=== PATIENT | female | born 2000 | race Caucasian/White ===

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

== ENCOUNTER 2018-08-03 06:26 | Day surgery (SDC) | payer OTHER ==
[2018-08-03 07:10] VITALS: BP 107/64; TEMP 98.6; BMI 27.9
[2018-08-03 08:39] LABS: Bilirubin Negative (Negative); Blood, Urine Negative (Negative); Clarity CLEAR (Clear); Glucose, Urine (Dipstick) Negative (Negative); Leukocyte Large (Negative); Nitrite Positive (Negative); Protein, Urine (Dipstick) Negative (Neg-Trace); Specific Gravity, Urine 1.006 (1.002-1.036); Urobilinogen 0.2 mg/dL (0.2-1.0); pH, Urine 7.5 (5.0-9.0)
[2018-08-03 08:40] LABS: Bacteria/HPF None Seen HPF (None Seen); Hyaline Casts/LPF 0-3 HYALINE CAST LPF (0-3 Hyaline); Pathc Cast-AUWi Flag 0.54 (0-2.49); RBC/HPF 0-3 HPF (0-3); Squamous Epithelial None Seen HPF (0-3); WBC/HPF 21-50 HPF (0-3)
--- NOTE | 2018-08-03 08:40 | PRG ---
DATE OF SERVICE: 08/03/2018 PRIMARY BILLING ASSISTANT: Dr. Jacob. CHIEF COMPLAINT: Back pain and pressure. HISTORY OF PRESENT ILLNESS: The patient is a 18-year-old G1, P0 female with an intrauterine at 35 weeks and 2 days, who is followed by Dr. Jacob, who presents for onset of early this morning of intermittent low back pain that lasts about 30 seconds at a time. The patient is unable to describe how often it comes, but says every few minutes. The patient reports prior to this onset of pain and pressure that she was feeling sick and under the weather. She denies vaginal bleeding or leakage of fluid. She denies fever, fall, headache, chest pain, or shortness of breath. The patient reports nausea with the pain. Denies vomiting , diarrhea, or constipation. Denies new rash, hip problems, knee problems, or muscle weakness. The pain is in her lower back bilaterally and again is described as pressure and intermittent. The patient also reports that she has been having urinary urgency where she feels like she has to go the bathroom every few minutes, which is new for her. PAST MEDICAL HISTORY: Negative. PAST SURGICAL HISTORY: She has had foot surgery with bone graft. ALLERGIES: TRAMADOL. MEDICATIONS: vitamins. OB LABS: Unavailable at time of dictation. REVIEW OF SYSTEMS: Per HPI. OB HISTORY: This is the first . SOCIAL HISTORY: Denies drug, alcohol, or tobacco use. PHYSICAL EXAMINATION: VITAL SIGNS: Blood pressure 107/64, heart rate of 86, respiratory rate of 18, and temperature 98.1. GENERAL: She appears to be in no acute distress. She is alert, oriented, cooperative, and pleasant to interact with. HEAD: Normocephalic, atraumatic. LUNGS: Clear to auscultation bilaterally. HEART: Has regular rate and rhythm. ABDOMEN: Gravid and soft. EXTREMITIES: Nontender, nonedematous. : Has a cervical exam of 1, 40, -2 station. heart tracing performed for back pain in . Fetus is noted to have a baseline in the 120s with moderate long-term variability, positive 15 x 15 accelerations, no decelerations. She has a lot of irritability seen on the monitor, but no consistent contraction pattern. Urinalysis is pending. ASSESSMENT AND PLAN: The patient is a 18-year-old G1, P0 female with an intrauterine at 35 weeks and 2 days, is having intermittent back pain which is likely contraction pain that she is experiencing. This may or may not be associated with a urinary urgency that she has been feeling. We do have a urinalysis ordered and results are pending. She has no evidence of labor at this time with a closed cervix. Fetus is reactive with a category 1 tracing. The patient has a followup appointment with Dr. Jacob on the 07 of August, which we have encouraged that she keep. The patient will be discharged to home. addendum- dx w/uti and jamie carrillo Job ID: [id number] [facility]
--- NOTE | 2018-08-03 08:55 | PDOC.EVN ---
Event Note - Event Note Event Note: Lab check: OnCall OB: Urine with nitrite pos. LE poos but no bacteria on micro... requested to send UC&S for confirmation We will treat emperically with macrobid 100BID x 5 days for now follow up UC&S for now
== END 2018-08-03 09:30 | disposition home or self-care (01) ==
LOC: L&D/OP 06:26
PROVIDERS: ATTEND Obstetrics & Gynecology
DX: O99.89 Other specified diseases and conditions complicating pregnancy, childbirth and the puerperium (principal); M54.9 Dorsalgia, unspecified; Z3A.35 35 weeks gestation of pregnancy; Z79.899 Other long term (current) drug therapy; Z88.5 Allergy status to narcotic agent
CPT/HCPCS: 81001; 99283

== ENCOUNTER 2018-08-08 18:26 | Day surgery (SDC) | payer OTHER ==
[2018-08-08 19:25] VITALS: BP 111/69; TEMP 98.6; BMI 28.9
[2018-08-08] MEDS ORDERED: Promethazine HCl 25 MG/ML VIAL IM/IV PRN (19:43)
[2018-08-08] MEDS ORDERED: Butorphanol Tartrate 1 MG/ML VIAL IM SCH (19:45)
--- NOTE | 2018-08-08 21:04 | HP ---
TIME OF EVALUATION: 1935 hours. LOCATION: Labor and Delivery triage in bed A. This is a patient Dr. Jacob. CHIEF COMPLAINT: The patient is here with complaint of irregular contractions. HISTORY OF PRESENT ILLNESS: This is a 18-year-old , G1, P0, at 36 weeks and 0 days here with irregular contractions. The patient's due date is September 05, 2018. Patient saw Dr. Matta earlier today and was checked in the office and her cervical exam was 1 cm dilated, 50% effaced, -2 station. She is here with same irregular contractions, but no leakage of fluid. No vaginal bleeding and good movement. There are no fevers. REVIEW OF SYSTEMS: Complete review of systems was checked and is otherwise negative unless specified in the HPI. PAST MEDICAL HISTORY: Negative. SURGICAL HISTORY: She had right foot surgery in the past. ALLERGIES: NONE, BUT SHE STATES THAT "TRAMADOL MAKES HER SICK." PHYSICAL EXAMINATION: VITAL SIGNS: Blood pressures are normal with a blood pressure of 111/60s to 70s and she is afebrile. GENERAL: Clinically, she is in no acute distress. : Uterus is soft and nontender. On cervical assessment, her cervix in Labor and Delivery is 1, 15, and -2, with no vaginal bleeding. Monitored heart tones are in the 140s and are category 1/reactive. Contractions are low amplitude and are present at about every 5 to 8 minutes. ASSESSMENT: This is a 18-year-old, G1, P0, at 36 weeks and 0 days, patient of Dr. Jacob, with no cervical change from earlier in today. Her contractions started at about 1500, but she has not made cervical change from the morning. PLAN: 1. No evidence of true labor at this time. 2. Information given to the family. 3. We will continue to monitor for now. 4. Pain medicine p.r.n. 5. As she is less than 2 cm, and appears in no acute distress, without evidence of cervical change, I will not give her Cel[place] at this time as my suspicion that she will deliver under 37 weeks is very low. Reassurance provided. Job ID: [id number]
== END 2018-08-08 19:55 | disposition home or self-care (01) ==
LOC: L&D/OP 18:26
PROVIDERS: ATTEND Obstetrics & Gynecology
DX: O47.03 False labor before 37 completed weeks of gestation, third trimester (principal); Z3A.36 36 weeks gestation of pregnancy; Z88.5 Allergy status to narcotic agent; Z79.899 Other long term (current) drug therapy
CPT/HCPCS: 99282

== ENCOUNTER 2018-08-24 10:55 | Day surgery (SDC) | payer OTHER ==
[2018-08-24 11:28] VITALS: BP 119/67; TEMP 98.7
[2018-08-24 11:29] VITALS: BMI 28.7
--- NOTE | 2018-08-24 15:58 | PRG ---
DATE OF SERVICE: 08/24/2018 PRIMARY OB: Bette Jacob MD CHIEF COMPLAINT: Abdominal pains. HISTORY OF PRESENT ILLNESS: The patient is a 18-year-old G1, P0 female with an intrauterine at 38 weeks and 2 days, who is presenting to Labor and Delivery with worsening onset of abdominal pain. The patient reports that contractions have gotten more severe, but not so bad that she is desiring pain medication. She does report that the last time she was seen, her cervical exam was about 50% effaced, 1 cm. She denies any falls or fever. She denies headache, chest pain, shortness of breath. She denies vomiting. She has had some nausea. Reports some diarrhea, but no constipation. Denies any new rashes. The patient does report pain in her hips, has been associated with this and some pain in her back. Denies urinary urgency. Denies change in her discharge. The patient does report that she thinks she has seen her mucus plug. 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 PAST SURGICAL HISTORY: She has had resection of this bone tumor with a bone graft with revision. ALLERGIES: TRAMADOL. MEDICATIONS: vitamins. OB LABS: Blood type is O positive. Platelets are 272. Hepatitis B surface antigen is negative. She is rubella immune. GC and chlamydia are negative. Diabetes screen is 68. One-hour Glucola is 68, HIV is nonreactive. Antibody screen is negative. REVIEW OF SYSTEMS: Per HPI. PHYSICAL EXAMINATION: VITAL SIGNS: Blood pressure is 114/68, heart rate is 86, respiratory rate is 16, saturating 98% on room air, and temperature 98.6. GENERAL: She appears to be in no acute distress. She is alert, oriented, cooperative, and pleasant to interact with. HEAD: Normocephalic and atraumatic. LUNGS: Clear to auscultation bilaterally. HEART: Has regular rate and rhythm. ABDOMEN: Gravid and nontender. EXTREMITIES: Nontender and nonedematous. She does have some SI joint tenderness on the right side. CERVICAL: 1.5, 80%, -2 station, and a repeat exam 3 hours later is unchanged. heart tracing performed for abdominal pains in shows category one tracing with baseline in the 120s with moderate long-term variability, positive accelerations. She had a single isolated deceleration lasting 20 seconds with no other decelerations visible on a strip over several hours. Tocometer showing irritable irregular uterine contractions with underlying contractions that may be 5 or 6, 10 minutes apart. ASSESSMENT AND PLAN: The patient is a 18-year-old G1, P0 female with an intrauterine at 38 weeks and 2 days, who is here with latent labor. The patient is being discharged to home. She has been offered pain medication to assist with pain control, which she has declined. The patient has been given term labor precautions and has been counseled to keep her appointment with Dr. Jacob as scheduled. Job ID: [id number]
== END 2018-08-24 14:40 | disposition home or self-care (01) ==
LOC: L&D/OP 10:55
PROVIDERS: ATTEND Obstetrics & Gynecology
DX: O47.1 False labor at or after 37 completed weeks of gestation (principal); Z3A.38 38 weeks gestation of pregnancy; Z88.5 Allergy status to narcotic agent; Z98.890 Other specified postprocedural states

== ENCOUNTER 2018-08-24 17:51 | Inpatient (IN) | payer OTHER ==
[~2018-08-24 17:51] MED LIST: Bupivacaine/Epinephrine 0.25% 30 ML VIAL ONE
[2018-08-24 18:17] VITALS: BMI 28.7
[2018-08-24] MEDS ORDERED: Morphine 4 MG/ML VIAL SLOW IVP SCH (18:30)
--- NOTE | 2018-08-24 19:44 | PDOC.FPROB ---
FMR OB H&P: HPI - History of Present Illness Chief Complaint: Contractions Indentification: 18 year old History of Present Illness: 18 year old at 38.2 wks presents to Labor and Delivery with contractions that are 3 minutes apart. Patient was seen earlier this afternoon for contractions and vaginal bleeding. She was noted to be 1.5/80/-2 and did not make change. She was discharged around 15:00 and returns with contractions that are stronger and closer together. She denies vaginal bleeding, vaginal discharge , dysuria, vomiting, or LoF. Primary Care Physician: Nidia FMR OB H&P: Current - Care : 1 Para: 0 Gestational age: 38.2 wks - OB Labs Blood type: O RH: positive Antibody Screen: negative HIV: negative HepBsAg: negative Rubella: immune Gonorrhea: negative Chlamydia: negative 1 hour gtt: 68 Platelets: 272 FMR OB H&P: History - Past Medical History PMH: Hx of bone tumor on ankle s/p resection with graft - Surgical History Sx History: Resection of bone tumor with bone graft and revision - Social History Social History: Denies alcohol, tobacco, or drug use FMR OB H&P: Medications - Current Home Medications: Medication Instructions Recorded Confirmed Type Pnv No.95/Ferrous Fum/Folic AC 1 each PO DAILY 08/03/18 08/24/18 History [ Caplet] Allergies/Adverse Reactions: Allergies Allergy/AdvReac Type Severity Reaction Status Date / Time tramadol [From Ultram] Allergy Intermediate Nausea Verified 08/03/18 07:11 FMR OB H&P: ROS - Review of Systems General: denies: fever/chills, weight/appetite/sleep changes Eyes: denies: vision changes ENT: denies: nasal congestion, rhinorrhea Cardiovascular: denies: chest pain, palpitation, edema Respiratory: denies: cough, shortness of breath Gastrointestinal: denies: nausea, vomiting Genitourinary (Female): reports: polyuria, contractions. denies: dysuria Neurologic: denies: syncope, weakness Hematologic/Lymphatic: denies: prolonged or excessive bleeding Psychological: denies: depression, anxiety FMR OB H&P: Vital Signs - Maternal Vital signs: BP 91/54 Pulse 86 Afebrile - Heart Tones Baseline: 120 Variability: moderate Acceleration: present Deceleration: absent Category: category 1 Crum contractions every: q4 min FMR OB H&P: Physical Exam - Physical Exam General: NAD, awake, alert and oriented HEENT: MMM, grossly normal vision, grossly normal hearing Heart: RRR, no murmurs/rubs/gallops General: CTAB, no respiratory distress Abdomen: soft, gravid, non-tender Musculoskeletal: pulses present, FROM in all four extremities Neurological: no tremor, no focal deficit Skin: no rash, capillary refill <2 seconds Lymphatic: no unusual bruising or bleeding, no purpura Psychiatric: intact recent and remote memory, good judgement and insight - Pelvic Exam SVE: 100/-2 at 18:20 by nurse Presentation: Cephalic FMR OB H&P: A/P - Problem List (1) Term Current Visit: Yes Status: Acute Code(s): Z34.80 - ENCOUNTER FOR SUPRVSN OF NORMAL , UNSP TRIMESTER Disposition: 18 year old at 38.2 wks presents with contractions 1. TIUP - 38.2 wks - Contractions q3-4 minutes - Category I strip - Cervical check at 18:20 by nurse 100/-2; cervical check around 15:00 was 1.5 80/-2 - Will recheck in 2 hours and notify patient's PCP - Patient given morphine for pain - Bolus 1L LR Dispo: Patient in latent labor. Will recheck in 2 hours to see if she has made any cervical change. Will notify patient's PCP for possible admission. Discussion: Date/Time: 08/24/181939 This H&P was discussed with Dr. Hogan who agrees with the above documentation and plan. Signature: Ariana Antoine DO PGY-2 Addendum - Attending - Attending Attestation Date/Time: 08/26/18 [id number] I personally evaluated the patient and discussed the management with Dr. Antoine I agree with the History, Examination, Assessment and Plan documented above with any addition or exceptions noted below.
[2018-08-24] MEDS ORDERED: Docusate 100 MG CAP PO PRN (21:21)
[2018-08-24] MEDS ORDERED: Butorphanol Tartrate 1 MG/ML VIAL SLOW IVP PRN (21:21)
[2018-08-24] MEDS ORDERED: Acetaminophen 500 MG TAB PO PRN (21:21)
[2018-08-24] MEDS ORDERED: Promethazine HCl 25 MG/ML VIAL IM PRN ×2 (21:21→23:18)
[2018-08-24] MEDS ORDERED: Ondansetron PF 4 MG/2 ML Vial IVP PRN ×2 (21:21→23:18)
[2018-08-24] MEDS ORDERED: Lidocaine 1% (PF) 30 ML VIAL SC PRN (21:23)
[2018-08-24] MEDS ORDERED: NS / Oxytocin 40 units/1000ml 1,000 ML IV PRN (21:23)
[2018-08-24] MEDS ORDERED: Ibuprofen 800 MG TAB PO PRN (21:23)
--- NOTE | 2018-08-24 21:27 | PDOC.EVN ---
Event Note - Event Note Event Note: 08/24/2018 at 9:25 PM Patient rechecked by nurse and noted to be 3/100/-2 with bulging bag. She has made cervical change and appears to be progressing. Patient yani Q3-4 minutes. Will admit to L&D for expectant management. Anticipate patient will labor throughout the night. Will notify patient's primary OB provider. Ariana Antoine, DO PGY-2
[2018-08-24] MEDS ORDERED: Lactated Ringer's 1,000 ML IV SCH (21:30)
--- NOTE | 2018-08-24 21:40 | PDOC.EVN ---
Event Note - Event Note Event Note: Per patient report, GBS negative. Did not find GBS status in records. Ariana Antoine, PGY-2
[2018-08-24 21:42] LABS: Hemoglobin 9.5 g/dL (12.0-16.0); Mean Corpuscular Hemoglobin 26.9 pg (25.0-35.0); Mean Corpuscular Volume 81.6 fL (78.0-98.0); Mean Platelet Volume 8.2 fL (7.4-10.4); Platelet Count 296 thou/uL (130-400); RBC Distribution Width 13.3 % (11.5-14.5); Red Blood Cell (RBC) Count 3.54 mill/uL (4.00-5.20); White Blood Cell (WBC) Count 16.7 thou/uL (4.8-10.8)
[2018-08-24] MEDS ORDERED: Fentanyl 4 mcg/Bup 0.1% Cadd 100 ML ONE (22:16)
[2018-08-24 22:25] LABS: Syphilis Antibody Nonreactive (Nonreactive); Syphilis Antibody Index 0.09 S/CO (<1.00 Non-Reactive)
[2018-08-24 22:55] LABS: HBSAg Index 0.32 S/CO (0-0.99); Hep B Surf Ag Non-Reactive S/CO (NonReactive)
[2018-08-24] MEDS ORDERED: Naloxone HCl 0.4 mg/ml Vial IVP PRN ×2 (23:18)
[2018-08-24] MEDS ORDERED: Hydrocerin (Eucerin) Cream 120 gm Jar TOP PRN (23:18)
[2018-08-24] MEDS ORDERED: diphenhydrAMINE 50 MG/ML VIAL IVP PRN (23:18)
[2018-08-24] MEDS ORDERED: Lactated Ringer's 500 ML IV PRN (23:18)
[2018-08-24] MEDS ORDERED: ePHEDrine/0.9% NaCl/PF SYRINGE 50 mg/10 ml SLOW IVP PRN (23:18)
[2018-08-24] MEDS ORDERED: Acetaminophen 325 MG TAB PO PRN (23:18)
[2018-08-24] MEDS ORDERED: Communication Order-Pharmacy FS SCH (23:30)
[2018-08-24] MEDS ORDERED: Fentanyl 4 mcg/Bupivacaine 0.1% Cassette 100 ML EPIDURAL SCH (23:30)
--- NOTE | 2018-08-25 00:24 | PDOC.EVN ---
Event Note - Event Note Event Note: 08/25/2018 at 12:23 AM AROM, clear fluid. Cervical check /-1. Ariana Antoine, PGY-2
[2018-08-25] MEDS ORDERED: Ondansetron PF 4 MG/2 ML Vial IVP PRN (06:12)
[2018-08-25] MEDS ORDERED: Benzocaine-Menthol 82.5 ML CAN TOP PRN (06:12)
[2018-08-25] MEDS ORDERED: Lanolin Ointment 7 GM TUBE TOP PRN (06:12)
[2018-08-25] MEDS ORDERED: Adacel (T-DAP) 0.5 ML SYRINGE IM ONE (06:12)
[2018-08-25] MEDS ORDERED: diphenhydrAMINE 25 MG CAP PO PRN (06:12)
[2018-08-25] MEDS ORDERED: Bisacodyl 10 MG SUPP PR PRN (06:12)
[2018-08-25] MEDS ORDERED: Milk Of Magnesia 30 ML UDCUP PO PRN (06:12)
[2018-08-25] MEDS ORDERED: NS / Oxytocin 40 units/1000ml 1,000 ML IV SCH (06:12)
[2018-08-25] MEDS ORDERED: Preparation H Ointment 28 GM TUBE PR PRN (06:12)
[2018-08-25] MEDS: Docusate Calcium (SURFAK) 240 MG CAP PO SCH ×2 (09:53→21:20)
[2018-08-25] MEDS: Prenatal Vitamin 1 TAB PO SCH (09:53)
[2018-08-25] MEDS: Ferrous Sulfate 325 MG TAB PO SCH ×2 (09:54→17:44)
[2018-08-25] MEDS: Ibuprofen 800 MG TAB PO SCH ×3 (09:54→17:43)
--- NOTE | 2018-08-26 04:12 | PDOC.PP ---
Post Progress Note Post Day #: 1 Subjective: Doing well, PPD1...not . Stated "no milk" PO intake tolerated: yes Flatus: yes Ambulation: yes Vital Signs (12 hours) Temp Pulse Resp BP BP Pulse Ox 08/26/18 00:20 98.3 F 94 16 101/53 L 08/25/18 21:25 98.7 F 83 16 103/61 99 08/25/18 17:00 98.3 F 91 18 109/63 Weight Weight 152 lb - Physical Examination General: NAD Cardiovascular: no m/r/g Respiratory: clear to auscultation bilaterally Abdominal: + bowel sounds, lochia, no distention, appropriately TTP Extremities: negative homans (B) Neurological: no gross focal deficits Psychiatric: A&Ox3, normal affect Result Diagrams: 08/24/18 21:32 Additional Labs: Post Labs Blood Type O POSITIVE 08/24/18 22:41 Hep Bs Antigen Non-Reactive S/CO (NonReactive) 08/24/18 21:32 (1) Vaginal delivery Code(s): O80 - ENCOUNTER FOR FULL-TERM UNCOMPLICATED DELIVERY Status: Acute - Assessment/Plan A/P: PPD1: 18 yo ...delivered 08/25 at 0227: Plan: 1. routine PP care until PPD2 tomorrow 2. I gave her information, and told her breastmilk not in until 3- 4 days...colostrum first. She will consider BF 3. No evidence metritis or abnormal VB at this time 4. Pain well controlled
[2018-08-26] MEDS: Ibuprofen 800 MG TAB PO SCH ×3 (05:13→20:49)
[2018-08-26 06:29] LABS: Hemoglobin 8.7 g/dL (12.0-16.0); Mean Corpuscular HGB CONC 32.5 g/dL (32.0-36.0); Mean Corpuscular Hemoglobin 27.1 pg (25.0-35.0); Mean Corpuscular Volume 83.4 fL (78.0-98.0); Mean Platelet Volume 7.3 fL (7.4-10.4); Platelet Count 258 thou/uL (130-400); RBC Distribution Width 13.1 % (11.5-14.5); White Blood Cell (WBC) Count 14.3 thou/uL (4.8-10.8)
[2018-08-26] MEDS: Docusate Calcium (SURFAK) 240 MG CAP PO SCH ×2 (10:27→20:49)
[2018-08-26] MEDS: Ferrous Sulfate 325 MG TAB PO SCH ×2 (10:27→17:09)
[2018-08-26] MEDS: Prenatal Vitamin 1 TAB PO SCH (10:27)
[2018-08-27] MEDS: Ibuprofen 800 MG TAB PO SCH (05:23)
--- NOTE | 2018-08-27 08:12 | PDOC.PP ---
Post Progress Note Post Day #: 2 PO intake tolerated: yes Flatus: yes Ambulation: yes Vital Signs (12 hours) Temp Pulse Resp BP Pulse Ox 08/26/18 20:45 98.3 F 84 16 111/69 99 Weight Weight 152 lb - Physical Examination Respiratory: clear to auscultation bilaterally, non-labored breathing Abdominal: + bowel sounds, lochia, no distention, appropriately TTP Result Diagrams: 08/26/18 06:12 Additional Labs: Post Labs Blood Type O POSITIVE 08/24/18 22:41 Hep Bs Antigen Non-Reactive S/CO (NonReactive) 08/24/18 21:32 - Assessment/Plan post day 2. Doing well. Ready for discharge.F/u in 6 weeks.
[2018-08-27] MEDS: Ferrous Sulfate 325 MG TAB PO SCH (08:21)
[2018-08-27] MEDS: Prenatal Vitamin 1 TAB PO SCH (08:21)
[2018-08-27] MEDS: Docusate Calcium (SURFAK) 240 MG CAP PO SCH (08:21)
[2018-08-27 08:51] VITALS: BP 109/67; TEMP 98.2
== END 2018-08-27 12:35 | disposition home or self-care (01) | DRG 807 ==
LOC: L&D/OP 17:51 → L&D 21:53 → 3SW 08-25 06:10
PROVIDERS: ADMIT Obstetrics & Gynecology; ATTEND Obstetrics & Gynecology
PROC: 10E0XZZ Delivery of Products of Conception, External Approach (ICD-10-PCS; principal; 2018-08-25)
PROC: 0KQM0ZZ Repair Perineum Muscle, Open Approach (ICD-10-PCS; 2018-08-25)
PROC: 10907ZC Drainage of Amniotic Fluid, Therapeutic from Products of Conception, Via Natural or Artificial Opening (ICD-10-PCS; 2018-08-25)
DX: O69.81X0 Labor and delivery complicated by cord around neck, without compression, not applicable or unspecified (principal); Z37.0 Single live birth; Z3A.38 38 weeks gestation of pregnancy; O70.1 Second degree perineal laceration during delivery
CPT/HCPCS: 36415; 51702; 85027; 86780; 86850; 86900; 86901; 87340; 99284; 99285; J2270

== ENCOUNTER 2019-06-12 08:52 | Emergency (ER) | payer OTHER ==
[2019-06-12] MEDS ORDERED: Ondansetron PF 4 MG/2 ML Vial ONE (09:07)
[2019-06-12 09:17] LABS: Bilirubin Negative (Negative); Blood, Urine Negative (Negative); Clarity Turbid (Clear); Glucose, Urine (Dipstick) Normal (Negative); Leukocyte 500 Leu/uL (Negative); Nitrite Negative (Negative); Protein, Urine (Dipstick) 100 mg/dL (Neg-Trace); WBC/HPF Greater than 50 HPF (0-3)
[2019-06-12 09:20] LABS: Pregnancy Test - Urine (BHCG) Negative (Negative); Pregu Control Background? CLEAR/WHITE (CLR/WHITE); Pregu Control Bar Appear? YES (CONTROL BAR); Specific Gravity 1.037 (1.002-1.036)
[2019-06-12 09:32] LABS: Bacteria/HPF 3+ HPF (None Seen)
[2019-06-12 09:39] LABS: Hemoglobin 14.1 g/dL (12.0-16.0); Mean Corpuscular HGB CONC 32.5 g/dL (32.0-36.0); Mean Corpuscular Volume 89.2 fL (78.0-98.0); Mean Platelet Volume 8.6 fL (7.4-10.4); Platelet Count 232 thou/uL (130-400); RBC Distribution Width 11.7 % (11.5-14.5); Red Blood Cell (RBC) Count 4.86 mill/uL (4.20-5.40); White Blood Cell (WBC) Count 11.1 thou/uL (4.8-10.8)
[2019-06-12 09:49] LABS: ALT (SGPT) 27 U/L (8-55); AST (SGOT) 27 U/L (5-34); Albumin 4.4 g/dL (3.5-5.0); Alkaline Phosphatase 77 U/L (40-110); Anion Gap 13 mmol/L (10-20); BUN (Urea Nitrogen) 15 mg/dL (7.0-18.7); Bilirubin, Total 1.7 mg/dL (0.2-1.2); Calc. Creatinine Clearance 0 mL/min (70-130); Calcium 9.4 mg/dL (7.8-10.44); Carbon Dioxide 24 mmol/L (22-29); Chloride 101 mmol/L (98-107); Estimated GFR-MDRD 87; Globulin 3.4 g/dL (2.4-3.5); Glucose 92 mg/dL (70-105); Lipase 18 U/L (8-78); Potassium 3.8 mmol/L (3.5-5.1); Protein, Total 7.8 g/dL (6.0-8.3); Sodium 134 mmol/L (136-145)
[2019-06-12 09:59] LABS: Band 5 % (5-11); Lymphocytes 7 % (21-51); MDiff Complete? YES; Monocytes 3 % (0-10); Neutrophil 85 % (42-75); Platelet Morphology Comment Appears Adequate; RBC Morphology Normal
== END 2019-06-12 11:21 | disposition home or self-care (01) ==
LOC: ERS 08:52
DX: N39.0 Urinary tract infection, site not specified (principal); R11.2 Nausea with vomiting, unspecified
CPT/HCPCS: 80053; 81003; 81015; 81025; 83690; 85025; 87077; 87086; 87186; 96361; 96374; J2405

== ENCOUNTER 2020-12-18 13:03 | Emergency (ER) | payer OTHER ==
[2020-12-18 13:33] LABS: #Basophils 0.1 thou/uL (0.0-0.2); #Eosinphils 0.1 thou/uL (0.0-0.7); #Lymphocytes 2.3 thou/uL (1.20-3.40); #Monocytes 0.8 thou/uL (0.11-0.59); #Neutrophils 8.4 thou/uL (1.40-6.50); %Basophils 0.9 % (0.0-1.0); %Eosinophils 0.8 % (0.0-10.0); %Lymphocytes 19.9 % (21.0-51.0); %Monocytes 6.6 % (0.0-10.0); %Neutrophils 71.9 % (42.0-75.0); Hemoglobin 13.4 g/dL (12.0-16.0); Mean Corpuscular HGB CONC 33.8 g/dL (32.0-36.0); Mean Corpuscular Hemoglobin 31.5 pg (27.0-31.0); Mean Corpuscular Volume 93.3 fL (78.0-98.0); Mean Platelet Volume 7.4 fL (7.4-10.4); Platelet Count 277 thou/uL (130-400); RBC Distribution Width 11.2 % (11.5-14.5); Red Blood Cell (RBC) Count 4.25 mill/uL (4.20-5.40); White Blood Cell (WBC) Count 11.7 thou/uL (4.8-10.8)
[2020-12-18] MEDS ORDERED: Ondansetron ODT 4 MG TAB ONE ×2 (13:43→13:44)
[2020-12-18 13:52] LABS: ALT (SGPT) 25 U/L (8-55); AST (SGOT) 20 U/L (5-34); Albumin 4.2 g/dL (3.5-5.0); Alkaline Phosphatase 62 U/L (40-110); Anion Gap 11 mmol/L (10-20); BUN (Urea Nitrogen) 7 mg/dL (7.0-18.7); Bilirubin, Total 0.6 mg/dL (0.2-1.2); Calc. Creatinine Clearance 0 mL/min (70-130); Calcium 9.2 mg/dL (7.8-10.44); Carbon Dioxide 23 mmol/L (22-29); Chloride 104 mmol/L (98-107); Globulin 3.4 g/dL (2.4-3.5); Glucose 85 mg/dL (70-105); Protein, Total 7.6 g/dL (6.0-8.3); Sodium 134 mmol/L (136-145)
[2020-12-18 19:08] LABS: Bilirubin Negative (Negative); Blood, Urine Negative (Negative); Clarity Clear (Clear); Glucose, Urine (Dipstick) Normal (Negative); Ketone, Urine 10 mg/dL (Negative); Leukocyte Negative Leu/uL (Negative); Nitrite Negative (Negative); Protein, Urine (Dipstick) Negative (Neg-Trace); Specific Gravity, Urine 1.015 (1.002-1.036); Urobilinogen Normal mg/dL (Less than 2)
== END 2020-12-18 21:07 | disposition home or self-care (01) ==
LOC: ERS 13:03
DX: O20.8 Other hemorrhage in early pregnancy (principal); O21.9 Vomiting of pregnancy, unspecified; Z3A.09 9 weeks gestation of pregnancy
CPT/HCPCS: 36415; 76856; 80053; 81003; 84702; 85025; 86900; 86901; Q0162